=== PATIENT | male | born 1955 | race American Indian/Alaskan Native ===

== ENCOUNTER 2020-10-17 16:31 | Emergency (ER) | payer OTHER ==
[2020-10-17 17:01] VITALS: BP 146/87
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
[2020-10-17 17:48] LABS: Basophils % (Auto) 0.3 % (0.0-1.8); Eosinophils # (Auto) 0.1 K/mm3 (0.0-0.4); Eosinophils % (Auto) 1.3 % (0.0-4.3); Hematocrit 44.2 % (35.5-45.6); Hemoglobin 14.8 gm/dl (11.8-15.2); Lymphocytes # (Auto) 1.9 K/mm3 (1.2-5.4); Lymphocytes % (Auto) 23.5 % (13.4-35.0); Mean Corpuscular HGB Conc 33 % (32-34); Mean Corpuscular Volume 88 fl (84-94); Monocytes # (Auto) 0.5 K/mm3 (0.0-0.8); Monocytes % (Auto) 6.6 % (0.0-7.3); Platelet Count 229 K/mm3 (140-440); Red Blood Count 5.02 M/mm3 (3.65-5.03); Red Cell Distribution Width 13.9 % (13.2-15.2)
[2020-10-17 17:49] LABS: BUN/Creatinine Ratio 17; Blood Urea Nitrogen 15 mg/dL (9-20); Calcium 9.6 mg/dL (8.4-10.2); Hemolysis Index 10
--- NOTE | 2020-10-17 19:21 | Cat Scan Report ---
CT CHEST WITH CONTRAST INDICATION / CLINICAL INFORMATION: Chest injury.. TECHNIQUE: Axial CT images were obtained through the chest after IV contrast. All CT scans at this location are performed using CT dose reduction for ALARA by means of automated exposure control. Findings: Small mediastinal and peritracheal nodes are scattered throughout the chest. Heart size appears hardeep l. Aorta appears normal. Trachea is unremarkable. Small increased interstitial prominence in the lung s could represent some mild interstitial edema. No large effusion is identified. The liver shows fatt y infiltration. Adrenal glands, kidneys, pancreas and spleen appear normal. Degenerative changes seen throughout spine. IMPRESSION: 1. No acute findings are seen. Mild interstitial edema. Signer Name: Bryan Alvarez MD Signed: 10/17/2020 7:16 PM Workstation Name: [id number]
--- NOTE | 2020-10-17 19:45 | Cat Scan Report ---
CT CERVICAL SPINE: 10/17/2020 INDICATION / CLINICAL INFORMATION: NECK INJURY. Trauma COMPARISON: None available. FINDINGS: CT images of the cervical spine were obtained. Images are evaluated in the axial, coronal, and sagitt al planes. There is no evidence of acute traumatic injury. Mild right convex scoliosis is present. Vertebral body height and alignment is otherwise unremarkable. Some degenerative disc space narrowing and disc bulging is present at C4-5, C5-6, and C6-7 level. CRANIOCERVICAL JUNCTION: Unremarkable. PARASPINAL STRUCTURES: There is some asymmetry to soft tissues at the level of the frontal sinus in t he supraglottic region, with slightly more fullness on the left. This can be positional or inflammato ry in nature, although underlying mucosal neoplasm cannot be excluded. Incidental note is made of some small bilateral numerous cervical lymph nodes, with a nonspecific flower earance. IMPRESSION: No evidence of acute osseous injury. Piriform sinus soft tissue asymmetry noted incidentally. All CT scans at this location are performed using dose reduction to ALARA by means of automated expos ure control. Signer Name: Juan Mercer MD Signed: 10/17/2020 7:41 PM Workstation Name: [id number]
--- NOTE | 2020-10-18 18:00 | Electrocardiograph Report ---
[facility] Test Date: 2020-10-17 Test Time: 16:49:55 Pat Name: RACHEL TUCKER Department: Room: Gender: M [employer]: GILBERTO : 1955 Requested By: RICK RUSHING Order Number: [id number] Reading MD: Luis Byrd Measurements Intervals [place] Rate: 79 P: 60 HI: 164 QRS: 6 QRSD: 82 T: 31 QT: 380 QTc: 436 Interpretive Statements Sinus rhythm No previous ECG available for comparison Electronically Signed On 10-18-2020 18:00:36 EDT by Luis Byrd
== END 2020-10-17 20:30 | disposition home or self-care (01) ==
LOC: ED 16:31
DX: S20.219A Contusion of unspecified front wall of thorax, initial encounter (principal); M54.2 Cervicalgia; V89.2XXA Person injured in unspecified motor-vehicle accident, traffic, initial encounter; Y93.89 Activity, other specified; Y92.488 Other paved roadways as the place of occurrence of the external cause; Y99.8 Other external cause status
CPT/HCPCS: 36415; 71260; 72125; 80048; 84484; 85025; 93005; 99284; Q9967